=== PATIENT | male | born 1980 | race Two or more races ===

== ENCOUNTER 2022-08-22 09:09 | Inpatient (IN) | payer OTHER ==
[~2022-08-22] VITALS: Ht 180.3 cm; Wt 124.1 kg
[2022-08-22 10:35] LABS: HEMATOCRIT 45.3 % (41-53); HEMOGLOBIN 15.4 g/dL (13.5-17.5); MEAN CORPUSCULAR VOLUME 91 fL (80-100); NEUTROPHILS % (AUTO) 61.4 % (40.0-70.0); PLATELET COUNT (AUTO) 227 K/uL (150-450); RED BLOOD CELL COUNT(AUTO) 4.97 MIL/uL (4.50-5.90); RED CELL DISTRIBUTION WIDTH 13.4 % (11.5-14.5)
[2022-08-22 10:36] LABS: BASOPHILS % (AUTO) 0.4 % (0.0-2.0); EOSINOPHILS % (AUTO) 7.3 % (1.0-6.0); LYMPHOCYTES # (AUTO) 1.9 K/uL (1.0-4.8); LYMPHOCYTES % (AUTO) 24.1 % (22.0-44.0); MONOCYTES # (AUTO) 0.5 K/uL (0.1-1.0); MONOCYTES % (AUTO) 6.8 % (2.0-9.0); NEUTROPHILS # (AUTO) 4.9 K/uL (1.8-7.7)
[2022-08-22 11:00] LABS: ANION GAP 6 mmol/L (8-16); CALCIUM, TOTAL 9.5 mg/dL (8.8-10.5); CARBON DIOXIDE 29 mmol/L (22-29); CHLORIDE 104 mmol/L (98-107); CREATININE 0.95 mg/dL (0.60-1.30); GLOMERULAR FILTR. RATE CALC > 60 mL/min (>60); GLUCOSE,RANDOM 108 mg/dL (70-110); POTASSIUM 3.7 mmol/L (3.5-5.1); SODIUM SERUM 139 mmol/L (136-145); UREA NITROGEN, BLOOD 9 mg/dL (7-18)
[2022-08-22 11:10] LABS: ALANINE AMINOTRANSFERASE 41 U/L (12-78); ALKALINE PHOSPHATASE 76 U/L (46-116); ASPARTATE AMINOTRANSFERASE 31 U/L (15-37); BILIRUBIN,TOTAL 0.7 mg/dL (0.1-1.0); TOTAL PROTEIN, SERUM 7.7 g/dL (6.4-8.2)
[2022-08-22 11:14] LABS: ALBUMIN 4.2 g/dL (3.4-5.0)
[2022-08-22] MEDS ORDERED: ACETAMINOPHEN 325 MG TABLET PO PRN (11:15)
[2022-08-22] MEDS ORDERED: ONDANSETRON HCL 4 MG/2 ML VIAL IVP PRN (11:15)
[2022-08-22 12:53] VITALS: BP 102/53
[2022-08-22] MEDS ORDERED: SODIUM CHLORIDE 0.9% 1,000 ML IV ONE (15:00)
[2022-08-22] MEDS ORDERED: LOPERAMIDE HCL 2 MG CAPSULE PO PRN (15:00)
[2022-08-22] MEDS ORDERED: LORazepam 2 MG/ML VIAL IVP PRN (15:00)
[2022-08-22] MEDS ORDERED: DICYCLOMINE HCL 10 MG CAPSULE PO PRN (15:00)
[2022-08-22] MEDS ORDERED: METOCLOPRAMIDE HCL 5 MG/ML 2 ML VIAL IVP PRN (15:00)
[2022-08-22 19:30] VITALS: BP 125/60
[2022-08-22] MEDS: TEMAZEPAM 15 MG CAPSULE PO SCH (20:00)
[2022-08-22 22:56] LABS: AMPHET/METH SCREEN,URINE POSITIVE (NEGATIVE); BARBITURATE SCREEN, URINE NEGATIVE (NEGATIVE); BENZODIAZEPINES SCREEN,URINE NEGATIVE (NEGATIVE); CANNABINOID SCREEN,URINE NEGATIVE (NEGATIVE); COCAINE SCREEN,URINE NEGATIVE (NEGATIVE); METHADONE SCREEN, URINE NEGATIVE (NEGATIVE); OPIATE SCREEN,URINE NEGATIVE (NEGATIVE); PHENCYCLIDINE SCREEN,URINE NEGATIVE (NEGATIVE)
[2022-08-23 04:26] VITALS: BP 126/68
[2022-08-23 07:30] VITALS: BP 131/82
[2022-08-23] MEDS: SERTRALINE HCL 50 MG TABLET PO SCH (12:12)
[2022-08-23 15:21] VITALS: BP 112/57
[2022-08-23] MEDS: TEMAZEPAM 15 MG CAPSULE PO SCH (20:13)
[2022-08-23 20:48] VITALS: BP 114/51
[2022-08-24] MEDS: SERTRALINE HCL 50 MG TABLET PO SCH (07:57)
[2022-08-24 08:03] VITALS: BP 116/62
[2022-08-24 15:34] VITALS: BP 110/50
[2022-08-24 19:54] VITALS: BP 120/59
[2022-08-24] MEDS: TEMAZEPAM 15 MG CAPSULE PO SCH (20:30)
[2022-08-25] MEDS: SERTRALINE HCL 50 MG TABLET PO SCH (08:05)
[2022-08-25 08:15] VITALS: BP 114/65
[2022-08-25 19:50] VITALS: BP 115/59
[2022-08-25] MEDS: TEMAZEPAM 15 MG CAPSULE PO SCH (20:07)
[2022-08-26 04:08] VITALS: BP 119/58
[2022-08-26 08:43] VITALS: BP 97/48
[2022-08-26] MEDS: SERTRALINE HCL 50 MG TABLET PO SCH (09:46)
[2022-08-26 19:45] VITALS: BP 115/47
[2022-08-26] MEDS ORDERED: TraZODone HCL 50 MG TABLET PO SCH (21:00)
[2022-08-27 04:15] VITALS: BP 113/53
[2022-08-27 07:42] VITALS: BP 110/53
[2022-08-27] MEDS: SERTRALINE HCL 50 MG TABLET PO SCH (10:03)
[2022-08-27] MEDS ORDERED: SERT-158 PO (12:11)
[2022-08-27] MEDS ORDERED: TRAZ-252 PO (12:12)
== END 2022-08-27 14:15 | DRG 897 ==
LOC: EMS 09:12 → 6S 11:22
PROVIDERS: ADMIT Internal Medicine; ATTEND Internal Medicine
DX: F13.239 Sedative, hypnotic or anxiolytic dependence with withdrawal, unspecified (principal); F33.2 Major depressive disorder, recurrent severe without psychotic features; F41.9 Anxiety disorder, unspecified; F15.10 Other stimulant abuse, uncomplicated
CPT/HCPCS: 80053; 80307; 85025; 99285; J2765; J7030